=== PATIENT | male | born 1950 | race Caucasian/White ===

== ENCOUNTER 2025-03-03 09:09 | Outpatient (CLI) | payer OTHER ==
[2025-03-03 09:35] LABS: Estimated GFR - POC 48.0
[2025-03-03] MEDS ORDERED: Iopamidol 370 76% 100 ML VIAL ONE (12:52)
== END 2025-03-03 09:10 | disposition home or self-care (01) ==
LOC: CT 09:09
PROVIDERS: ATTEND Internal Medicine Cardiovascular Disease
DX: I65.23 Occlusion and stenosis of bilateral carotid arteries (principal)
CPT/HCPCS: 36415; 70498; 82565; Q9967